=== PATIENT | female | born 1945 | race Caucasian/White ===

== ENCOUNTER 2017-03-27 11:55 | Emergency (ER) | payer MEDICARE, OTHER ==
[~2017-03-27 11:55] MED LIST: ADULT LOW DOSE81 MG PO; AMBIEN CR12.5 MG/BO; AMBIEN CR12.5 MG/BO PO; CALCIUM + D T1 UDTAB PO; CALTRATE PO; DETROL LA4 MG; DILAUDID2 MG PO; ENALAPRIL-HCTZ1 TAB PO; FISH OIL 1,0001 CA PO; GLUCOSAMINE & C1 CAP PO; LOVENOX40 MG/0.4 SQ; PRILOSEC20 MG; SAVELLA50 MG PO; VASERETIC 10-251 TAB; VASOTEC PO; VITAMIN C120 GM PO; VITAMIN D32000 UNIT PO; XANAX0.5 MG PO; ZOLOFT100 MG; ZOLOFT50 MG PO; ZYRTEC10 MG; [UNRECOGNIZED DRUG - REMARK] PO
[2017-03-27] MEDS ORDERED: REQUIP4 M1 PO (12:57)
[2017-03-27] MEDS ORDERED: VOLTAREN100 G1 TP (13:01)
[2017-03-27] MEDS ORDERED: ZETIA10 M1 PO (13:01)
[2017-03-27] MEDS ORDERED: NEURONTIN600 M1 PO ×2 (13:02)
[2017-03-27] MEDS ORDERED: ROPINIROLE HCL1 M1 PO (13:02)
[2017-03-27] MEDS ORDERED: FLONASE ALLERG9.9 ML (13:02)
[2017-03-27] MEDS ORDERED: MIRALAX17 G2 PO (13:02)
[2017-03-27] MEDS ORDERED: TRAZODONE HCL50 M1 PO (13:03)
[2017-03-27] MEDS ORDERED: IBUPROFEN800 M1 PO (13:03)
[2017-03-27] MEDS ORDERED: LEXAPRO20 M2 PO (13:03)
[2017-03-27] MEDS ORDERED: XANAX0.5 M1 PO (13:03)
[2017-03-27 13:08] LABS: BASO % 0.2 % (0-2); EOS % 3.1 % (0-7); EOSINOPHIL ABSOLUTE COUNT 0.2 tho/cmm (0.0-0.7); HCT-HEMATOCRIT 35.6 % (34.0-49.0); HGB-HEMOGLOBIN 12.1 gm/dl (12.0-15.5); IMMATURE GRANULOCYTES ABSOLUTE 0.01 tho/cmm (0-0.03); IMMATURE GRANULOCYTES PERCENT 0.2 % (0-0.3); LYMPH % 29.1 % (20-45); LYMPH ABSOLUTE COUNT 1.9 tho/cmm (0.8-4.5); MCH (MEAN CORPUSCULAR HGB) 28.9 pg (28.0-32.0); MCV (MEAN CELL VOLUME) 85.2 fl (82.0-96.0); MEAN PLATELET VOLUME 9.6 cmc (9.4-12.4); MONO % 5.3 % (0-12); MONOCYTE ABSOLUTE COUNT 0.3 tho/cmm (0.0-1.2); NEUTROPHILS % 62.1 % (40-80); PLATELET COUNT 195 tho/cmm (150-450); RED BLOOD COUNT 4.18 mil/cmm (4.00-5.20); RED CELL DISTRIBUTION WIDTH 13.2 % (12.4-16.4); WHITE BLOOD COUNT 6.4 tho/cmm (4.0-10.0)
[2017-03-27 13:15] LABS: URINE BILIRUBIN NEGATIVE (NEG); URINE BLOOD NEGATIVE (NEG); URINE GLUCOSE (UA) NEGATIVE (NEG); URINE KETONE NEGATIVE (NEG); URINE LEUKOCYTE ESTERASE NEGATIVE (NEG); URINE NITRITE NEGATIVE (NEG); URINE PROTEIN NEGATIVE (NEG)
[2017-03-27 13:21] LABS: URINE APPEARANCE CLEAR; URINE COLOR YELLOW
[2017-03-27 13:26] LABS: ANION GAP 12 mmol/L (0-20); BLOOD UREA NITROGEN 18 mg/dl (6-24); CALCIUM 9.3 mg/dl (8.5-10.5); CARBON DIOXIDE-VENOUS 27 mmol/L (22-32); CHLORIDE 100 mmol/l (96-110); CREATININE 0.84 mg/dl (0.50-1.10); GLUCOSE 135 mg/dL (70-110); SODIUM 135 mmol/L (135-145); eGFR VALUE FOR BLACK 82 mL/Min
[2017-03-27] MEDS ORDERED: ASPIRIN81 M1 PO (13:26)
[2017-03-27] MEDS ORDERED: GABAPENTIN600 M2 PO (13:26)
[2017-03-27] MEDS ORDERED: VITAMIN D31000 UNI3 PO (13:27)
[2017-03-27] MEDS ORDERED: COMPETE1 EACH PO (13:27)
[2017-03-27] MEDS ORDERED: B-121000 MCG/1 PO (13:28)
[2017-03-27] MEDS ORDERED: [UNRECOGNIZED DRUG - CODE] PO (13:28)
== END 2017-03-27 14:28 ==
LOC: EDMED 11:55
PROVIDERS: Emergency Medicine
DX: R55 Syncope and collapse (principal); I10 Essential (primary) hypertension
CPT/HCPCS: J7030